=== PATIENT | male | born 1970 | race Caucasian/White ===

== ENCOUNTER 2024-04-25 16:09 | Emergency (ER) | payer OTHER, SELFPAY ==
[2024-04-25 16:11] VITALS: BP 158/114
--- NOTE | 2024-04-25 17:04 | ED.GENMED ---
History of Present Illness
General
Chief Complaint: Back Pain
Source: patient
Exam Limitations: none
Time Seen by Provider: 04/25/24 16:56
Nursing documentation reviewed up to this point in time: agreed with
History of Present Illness
History of Present Illness:
Patient is a 53 male with chronic back issues previous laminectomy in the past presents for low back pain. He reports he typically gets intermittent spasms and pulls his back out intermittently. Today he stepped the wrong way and felt pain in his
low back. Today he did not take anything for pain. He has cyclobenzaprine and gabapentin at home however does not use it. He denies any radiation of pain. Denies any bowel or bladder incontinence.
Past History
Past History
ED Past Medical History: Other (Back Problems, chronic low back pain microdiscectomy in 2012, previous fractured foot)
ED Past Surgical History: Orthopedic (fracture of the left foot, microdiscectomy in the low lumbar spine 02/14/13)
Social History
Alcohol: Occasional
Personal:
Living: with family
Employment: Employed
Review of Systems
Review of Systems
Allergies reviewed?: Yes
All Other Systems: ROS reviewed and negative except as documented in HPI and ROS
Constitutional: Reports no symptoms; Denies fever, fatigue or chills
Respiratory: Reports no symptoms
Cardiac: Reports no symptoms
ABD/GI: Reports no symptoms
: Denies incontinence
Musculoskeletal: Reports back pain (+ low back pain )
Neurological: Reports no symptoms; Denies numbness (Denies any numbness tingling weakness)
Psychiatric: Reports no symptoms
Phy Exam
General Physical Exam
General Presentation: no apparent distress
General age: appears stated age
General Skin: warm and dry
General Habitus: normal
General Mental: alert
General Hydration: appears well hydrated
Neurological Exam
Neurological Exam: alert, oriented x3, no motor deficits, no sensory deficits and other (Intact sensation to bilateral lower extremities normal dorsiflexion normal plantarflexion)
Musculoskeletal Exam
Musculoskeletal Exam: other (old small scar to lumbar region no erythema nontender)
Skin Exam
Skin Exam: normal color and warm/dry
Psychiatric Exam
Psychiatric Exam: normal mood/affect
Course
Orders/Labs/Results
Orders:
Orders
04/25/24 17:11
Ketorolac [Toradol] 30 mg IM NOW STA
diazePAM [Valium Injection] 5 mg IM NOW STA
04/25/24 18:14
HYDROmorphone [Dilaudid] 1 mg IM NOW STA
04/25/24 19:01
Vital Signs- Treatment ONCE
Frequency: Once
Vital Signs
Initial and Last Documented VS:
Initial Vital Signs
Temp Pulse Resp BP Pulse Ox
98.8 F 102 17 158/114 99
04/25/24 16:11 04/25/24 16:11 04/25/24 16:11 04/25/24 16:11 04/25/24 16:11
Last Documented Vital Signs
Temp Pulse Resp BP Pulse Ox
98.8 F 102 17 158/114 99
04/25/24 16:11 04/25/24 16:11 04/25/24 16:11 04/25/24 16:11 04/25/24 16:11
MDM/Problems Addressed
Differential Diagnosis Includes:
not limited to: muscle sprain/strain
MDM/Problems Addressed:
Symptoms are consistent muscular back pain. Patient with no radiation of pain no bowel or bladder incontinence normal strength. Patient has had relief with medications here in the ER stable for discharge home.
*Pulse Oximetry
Patient hypoxic: no
*Critical Care Note
Total Time (30-74mins, 75-104mins- exclusive of procedures): Not Applicable
ED Attending Note
-
Portions of this chart may have been created with voice recognition software.� Occasional wrong word or��sound alike� substitutions may have occurred due to the inherent limitations of voice recognition software.
Discharge Plan
Departure
Patient Disposition: Home (Routine Discharge)
Date of Disposition: 04/25/24
Time of Disposition: 19:01
Patient with high blood pressure during this ER visit?: Yes
Condition: Fair
Covid-19: Not Applicable
Discharge Problem:
Low back pain
Instructions: Low Back Pain (DC), BLOOD PRESSURE
Prescriptions:
No Action
cyclobenzaprine [Flexeril] 10 MG tablet
10 mg PO HSPRN PRN (Reason: muscle spasms) Qty: 7 0RF
hydrocodone-acetaminophen 5 MG/500 MG tablet
1 tab PO Q6HPRN PRN (Reason: pain) Qty: 12 0RF
hydromorphone 2 MG tablet
2 mg PO Q4HPRN PRN (Reason: prn for pain) Qty: 20 0RF
diazepam 5 MG tablet
5 mg PO TIDPRN PRN (Reason: prn for muscle relaxation) Qty: 14 0RF
hydromorphone 2 MG tablet
2 mg PO Q4HPRN PRN (Reason: pain) Qty: 20 0RF
Activity Restrictions/Additional Instructions:
As discussed you may take ibuprofen 600 mg every 8 hours with food over the next 2 days for symptoms. You may apply warm moist heat several times a day. You may take your muscle relaxer at home as previously recommended. Follow-up with your
family doctor in the next several days and return if any worsening of symptoms.
Interventions
Interventions:
*Risk Screen - Suicide Last Done: 04/25/24 16:11
*General Assessment Last Done: 04/25/24 16:11
*Neglect/Abuse Screening Last Done: 04/25/24 17:46
*ED COVID-19 Vaccine History Last Done: 04/25/24 17:46
ED-Musculoskeletal Assessment Last Done: 04/25/24 17:30
Discharge Date and Time
Print Language: ESTONIAN
[2024-04-25] MEDS: VALIUM INJECTION 5 MG IM (17:30)
[2024-04-25] MEDS: TORADOL 30 MG IM (17:30)
[2024-04-25] MEDS: DILAUDID 1 MG IM (18:22)
[2024-04-25 19:13] VITALS: BP 171/113
== END 2024-04-25 19:47 | disposition home or self-care (01) ==
LOC: EMR 16:09
PROVIDERS: EMERGENCY PHYSICIAN Emergency Medicine; FAMILY PHYSICIAN Family Medicine
DX: M54.50 Low back pain, unspecified (principal); G89.29 Other chronic pain; Z98.890 Other specified postprocedural states
CPT/HCPCS: 96372; 99284